=== PATIENT | female | born 1965 | race American Indian/Alaskan Native ===

== ENCOUNTER → 2023-06-11 13:42 | Outpatient (REF) | payer SELFPAY | LOC: HWRAD 13:42 | PROVIDERS: ATTENDING PHYSICIAN Internal Medicine | DX: E78.5 Hyperlipidemia, unspecified (principal) | CPT/HCPCS: 75571 ==

== ENCOUNTER 2024-08-09 08:13 | Emergency (ER) | payer OTHER, SELFPAY ==
[2024-08-09 08:14] VITALS: BP 145/84
[2024-08-09 08:34] LABS: % Basophils 1.2 % (0-2); % Eosinophils 8.5 % (0-6); % Immature Granulocytes 0.3 % (0-0.5); % Lymphocytes 29.8 % (20.5-51.1); % Monocytes 7.8 % (1.7-9.3); % Neutrophils 52.4 % (42.2-75.2); Absolute Basophils 0.1 10^3/uL (0-0.2); Absolute Eosinophils 0.5 10^3/uL (0-0.7); Absolute Lymphocytes 1.8 10^3/uL (1.2-3.4); Absolute Monocytes 0.5 10^3/uL (0.1-0.6); Absolute Neutrophils 3.1 10^3/uL (1.4-6.5); Hematocrit 34.7 % (37.0-47.0); Hemoglobin 11.8 g/dL (12.0-16.0); Mean Corpuscular Hgb 29.3 pg (27.0-31.0); Mean Corpuscular Volume 86.1 fL (81.0-99.0); Nucleated Red Blood Cells % 0 %; Platelet Count 237 10^3/uL (130-400); Red Blood Cell Count 4.03 10^6/uL (4.20-5.40); Red Cell Dist. Width 13.6 % (11.5-14.5); White Blood Cell Count 5.9 10^3/uL (4.8-10.8)
[2024-08-09 08:58] LABS: ALT (SGPT) 28 U/L (0-35); AST (SGOT) 27 U/L (14-36); Albumin 4.2 g/dl (3.5-5.0); Alkaline Phosphatase 63 U/L (38-126); Blood Urea Nitrogen 18 mg/dl (7-17); Calcium 9.5 mg/dl (8.4-10.2); Carbon Dioxide 28 mmol/L (22-30); Chloride 106 mmol/L (98-107); Glucose 87 mg/dl (70-99); Sodium 143 mmol/L (135-145); Total Bilirubin 0.4 mg/dl (0.2-1.3); Total Protein 7.4 g/dl (6.3-8.2); eGFR > 60.00
--- NOTE | 2024-08-09 09:18 | ED.GENMED ---
History of Present Illness
General
Chief Complaint: Back Pain
Time Seen by Provider: 08/09/24 08:50
History of Present Illness
History of Present Illness:
58-year-old female with history of hypothyroidism presents to the emergency department for evaluation of diffuse low back pain radiating to the abdomen ongoing for the past 5 days. Denies any traumatic injuries. Pain has been gradually worsening.
No fevers or chills. Denies any nausea vomiting or lower urinary tract symptoms. Has taken Tylenol without relief. Symptoms do not radiate and there are no obvious modifying factors
Review of Systems
Review of Systems
Allergies reviewed?: Yes
All Other Systems: ROS reviewed and negative except as documented in HPI and ROS
Phy Exam
Physical Exam
Physical Exam:
GEN: Well appearing, NAD, WDWN
HEENT: Oral mucosa moist, no scleral icterus
Cardiac: Regular rate
Lung: No respiratory distress, no tachypnea
Abdomen: Soft, diffusely tender to all 4 quadrants, no rigidity
MSK: No gross deformity or injuries. Tender to palpation in the midline lumbar spine, no palpable deformity
Skin: Good color, no pallor or jaundice, no rashes
Neuro: AO x3, moves all extremities freely
Psych: Calm, cooperative
Course
Orders/Labs/Results
Orders:
Orders
08/09/24 08:27
CMP [Comprehensive Metabolic Panel] Urgent
Complete Blood Count/With Diff Urgent
Lipase Urgent
Comment: ADD ON
08/09/24 09:07
CT Abd/Pel (IV only)-DH only Urgent
Comment:
Reason For Exam: low back/abd pain
Ketorolac [Toradol] 15 mg IV NOW STA
08/09/24 09:08
Add On- LAB Urgent
Tests Added?: lipase
08/09/24 10:24
Urinalysis Reflex To Culture Urgent
Date Specimen was Collected: 08/09/24
Time Specimen was Collected: 09:09
Abnormal Lab Results
08/09/24
08:27
RBC 4.03 L 10^6/uL
(4.20-5.40)
Hgb 11.8 L g/dL
(12.0-16.0)
Hct 34.7 L %
(37.0-47.0)
MPV 11.0 H fL
(7.4-10.4)
Eosinophils % 8.5 H %
(0-6)
BUN 18 H mg/dl
(7-17)
08/09/24 08:27
08/09/24 08:27
Vital Signs
Initial and Last Documented VS:
Initial Vital Signs
Temp Pulse Resp BP Pulse Ox
98.1 F 66 22 145/84 100
08/09/24 08:14 08/09/24 08:14 08/09/24 08:14 08/09/24 08:14 08/09/24 08:14
Last Documented Vital Signs
Temp Pulse Resp BP Pulse Ox
98.1 F 85 16 124/74 98
08/09/24 08:14 08/09/24 12:06 08/09/24 12:06 08/09/24 12:06 08/09/24 12:06
MDM/Problems Addressed
MDM/Problems Addressed:
Patient's workup is grossly unremarkable, no obvious etiology to symptoms at this point. Likely mechanical low back pain, discussed supportive care. She is no lower extremity radiculopathy or loss of urinary continence that would warrant urgent
imaging of the lumbar spine
*Critical Care Note
Total Time (30-74mins, 75-104mins- exclusive of procedures): Not Applicable
ED Attending Note
-
Portions of this chart may have been created with voice recognition software.� Occasional wrong word or��sound alike� substitutions may have occurred due to the inherent limitations of voice recognition software.
Discharge Plan
Departure
Patient Disposition: Home (Routine Discharge)
Date of Disposition: 08/09/24
Time of Disposition: 11:17
Patient with high blood pressure during this ER visit?: No
Discharge Problem:
Low back pain
Instructions: Low Back Pain (DC)
Prescriptions:
New
diclofenac sodium 75 mg tablet,delayed release (DR/EC)
75 mg PO BID Qty: 20 0RF
methocarbamol 750 mg tablet
750 - 1,500 mg PO HS Qty: 20 0RF
Referrals:
Ger Brady MD [Family Provider] -
Interventions
Interventions:
*Risk Screen - Suicide Last Done: 08/09/24 08:14
*General Assessment Last Done: 08/09/24 08:14
*Neglect/Abuse Screening Last Done: 08/09/24 08:14
*ED- Fall Risk Assessment Last Done: 08/09/24 12:06
*ED COVID-19 Vaccine History Last Done: 08/09/24 12:06
*Nursing Disposition Last Done: 08/09/24 12:06
ED-Musculoskeletal Assessment Last Done: 08/09/24 10:02
Discharge Date and Time
Discharge Date/Time: 08/09/24 12:07
Print Language: [place]
[2024-08-09] MEDS: TORADOL 15 MG IV (09:19)
[2024-08-09 10:30] LABS: Lipase 103 U/L (23-300)
[2024-08-09 10:43] LABS: Urine Albumin Negative (Neg - Trace); Urine Bilirubin Negative (Negative); Urine Character Clear (Clear); Urine Color Yellow; Urine Glucose Negative (Negative); Urine Ketone Negative (Negative); Urine Leukocyte Negative (Negative); Urine Nitrite Negative (Negative); Urine Occult Blood Negative (Negative); Urine Urobilinogen Negative (Neg - 1+)
[2024-08-09 12:06] VITALS: BP 124/74
== END 2024-08-09 12:07 | disposition home or self-care (01) ==
LOC: EMR 08:13
PROVIDERS: Physician Assistant; EMERGENCY PHYSICIAN Student in an Organized Health Care Education/Training Program; FAMILY PHYSICIAN Internal Medicine
DX: M54.50 Low back pain, unspecified (principal); E03.9 Hypothyroidism, unspecified
CPT/HCPCS: 99284; 96374; 74177; 80053; 81003; 83690; 85025; Q9967